=== PATIENT | female | born 1995 | race Caucasian/White ===

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

== ENCOUNTER → 2017-04-12 | Outpatient (CLI) | payer OTHER | LOC: M ADAMS 17:40 | DX: S60.222A Contusion of left hand, initial encounter (principal); X58.XXXA Exposure to other specified factors, initial encounter; Y92.9 Unspecified place or not applicable ==

== ENCOUNTER 2017-06-04 17:57 | Emergency (ER) | payer OTHER ==
[2017-06-04 21:23] LABS: KETONE, URINE AUTO RFX NEGATIVE (NEGATIVE); LEUKOCYTE ESTERASE UR AUTO RFX NEGATIVE (NEGATIVE); MUCUS, URINE RFX SMALL (NEGATIVE); NITRITE, URINE AUTO RFX NEGATIVE (NEGATIVE); RBC, URINE AUTO RFX 3 /HPF (0-3); SQUAM EPITHELIAL CELL UR AURFX 1 /HPF (0-6); WBC, URINE AUTO RFX 2 /HPF (0-3)
[2017-06-04] MEDS: NS 1,000 ML IV ×2 (21:30)
[2017-06-04] MEDS: MORPHINE 2 MG/ML 1ML SYRINGE (J2270) IV ×2 (21:30)
[2017-06-04] MEDS: ONDANSETRON 4MG/2ML VIAL (J2405) IV ×2 (21:30)
[2017-06-04] MEDS: GASTROGRAFIN SOLUTION 30ML PO ×4 (21:30→22:00)
[2017-06-04] MEDS: ACETAMINOPHEN 325 MG TAB PO ×2 (22:00)
[2017-06-04 22:01] LABS: BASO % 0.4 % (0.0-1.0); EOS # 0.1 10^3/uL (0.0-0.50); EOS % 1.5 % (0.0-3.0); HEMATOCRIT 48.7 % (36.0-47.0); HEMOGLOBIN 16.2 g/dl (12.0-15.5); IMMATURE GRANULOCYTE % 0.2 % (0-3.0); LYMPH # 3.1 10^3/uL (1.5-6.5); LYMPH % 34.6 % (24.0-44.0); MEAN CORPUSCULAR HEMOGLOBIN 29.2 pg (27.0-33.0); MEAN CORPUSCULAR HGB CONC 33.3 g/dl (32.0-36.5); MEAN CORPUSCULAR VOLUME 87.9 fl (80.0-96.0); MONO # 0.7 10^3/uL (0.0-0.8); MONO % 7.5 % (0.0-5.0); NEUTROPHILS % 55.8 % (36.0-66.0); PLATELET COUNT, AUTOMATED 275 10^3/uL (150-450); RED BLOOD COUNT 5.54 10^6/uL (4.00-5.40); RED CELL DISTRIBUTION WIDTH 12.4 % (11.5-14.5); WHITE BLOOD COUNT 8.9 10^3/uL (4.0-10.0)
[2017-06-04 22:12] LABS: INR 0.98
[2017-06-04 22:19] LABS: ALBUMIN 4.5 GM/DL (3.2-5.2); ALBUMIN/GLOBULIN RATIO 1.32 (1.00-1.93); ALKALINE PHOSPHATASE 92 U/L (45-117); ALT/SGPT 23 U/L (12-78); ANION GAP 5 MEQ/L (8-16); AST/SGOT 18 U/L (7-37); BILIRUBIN,DIRECT 0.1 MG/DL (0.0-0.2); BILIRUBIN,TOTAL 0.4 MG/DL (0.2-1.0); BLOOD UREA NITROGEN 10 MG/DL (7-18); CALCIUM LEVEL 9.5 MG/DL (8.5-10.1); CARBON DIOXIDE LEVEL 27 MEQ/L (21-32); CHLORIDE LEVEL 107 MEQ/L (98-107); CREATININE FOR GFR 0.74 MG/DL (0.55-1.30); GLUCOSE, FASTING 76 MG/DL (70-100); LIPASE 82 U/L (73-393); POTASSIUM SERUM 4.3 MEQ/L (3.5-5.1); SODIUM LEVEL 139 MEQ/L (136-145); TOTAL PROTEIN 7.9 GM/DL (6.4-8.2)
[2017-06-04] MEDS ORDERED: ISOVUE-370 76% 100ML VIAL (Q9967) As Ordered ×2 (22:42)
== END 2017-06-04 23:54 | disposition home or self-care (01) ==
LOC: M ED 17:57
DX: K92.1 Melena (principal); K62.89 Other specified diseases of anus and rectum; J45.909 Unspecified asthma, uncomplicated; Z88.0 Allergy status to penicillin; Z88.8 Allergy status to other drugs, medicaments and biological substances; Z79.899 Other long term (current) drug therapy
CPT/HCPCS: Q9963

== ENCOUNTER → 2017-10-01 | Outpatient (REF) | payer OTHER ==
[2017-10-01 20:06] LABS: BASO % 0.3 % (0.0-1.0); EOS # 0.1 10^3/uL (0.0-0.50); HEMATOCRIT 47.4 % (36.0-47.0); HEMOGLOBIN 15.1 g/dl (12.0-15.5); IMMATURE GRANULOCYTE % 0.5 % (0-3.0); LYMPH % 22.4 % (24.0-44.0); MEAN CORPUSCULAR HEMOGLOBIN 29.3 pg (27.0-33.0); MEAN CORPUSCULAR HGB CONC 31.9 g/dl (32.0-36.5); MONO # 0.8 10^3/uL (0.0-0.8); MONO % 8.8 % (0.0-5.0); NEUTROPHILS # 5.9 10^3/uL (1.8-7.7); PLATELET COUNT, AUTOMATED 313 10^3/uL (150-450); RED BLOOD COUNT 5.15 10^6/uL (4.00-5.40); RED CELL DISTRIBUTION WIDTH 13.1 % (11.5-14.5); WHITE BLOOD COUNT 8.8 10^3/uL (4.0-10.0)
[2017-10-01 20:27] LABS: ALBUMIN/GLOBULIN RATIO 1.14 (1.00-1.93); ALKALINE PHOSPHATASE 84 U/L (45-117); ALT/SGPT 24 U/L (12-78); AMYLASE 70 U/L (25-115); ANION GAP 9 MEQ/L (8-16); AST/SGOT 14 U/L (7-37); BILIRUBIN,TOTAL 0.4 MG/DL (0.2-1.0); BLOOD UREA NITROGEN 11 MG/DL (7-18); CALCIUM LEVEL 9.4 MG/DL (8.5-10.1); CARBON DIOXIDE LEVEL 28 MEQ/L (21-32); CHLORIDE LEVEL 106 MEQ/L (98-107); CREATININE FOR GFR 0.85 MG/DL (0.55-1.30); FREE T4 1.15 NG/DL (0.78-1.33); GLUCOSE, FASTING 83 MG/DL (70-100); LIPASE 73 U/L (73-393); POTASSIUM SERUM 4.5 MEQ/L (3.5-5.1); SODIUM LEVEL 143 MEQ/L (136-145); TOTAL PROTEIN 7.5 GM/DL (6.4-8.2)
== END ==
LOC: M LAB REF 19:34
DX: R10.9 Unspecified abdominal pain (principal); R63.5 Abnormal weight gain
CPT/HCPCS: 82150

== ENCOUNTER → 2017-10-01 | Outpatient (CLI) | payer OTHER, SELFPAY | LOC: M RAD 14:47 | DX: N83.201 Unspecified ovarian cyst, right side (principal); R63.5 Abnormal weight gain; R10.9 Unspecified abdominal pain | CPT/HCPCS: 76856 ==

== ENCOUNTER → 2017-10-01 | Outpatient (REF) | payer OTHER, SELFPAY | LOC: M LAB REF 19:40 | DX: R10.9 Unspecified abdominal pain (principal) | CPT/HCPCS: 87086 ==

== ENCOUNTER 2018-04-12 16:06 | Emergency (ER) | payer OTHER ==
[~2018-04-12] VITALS: Ht 154.9 cm; Wt 62.7 kg
[~2018-04-12 16:06] MED LIST: ALBU17IN2 INH; COLA100C5 PO; TYLE500T78 PO
[2018-04-12] MEDS ORDERED: ONDANSETRON 4 MG ORAL DISINTEGRATING TAB (Q0162 PER 1MG) PO ONE (16:45)
[2018-04-12] MEDS ORDERED: IPRATROPIUM 0.5MG/ALBUTEROL 2.5MG INH SOL UD 3ML (DUONEB)(J7620) NEB ONE (16:45)
[2018-04-12] MEDS ORDERED: predniSONE 20 MG TAB PO ONE (17:30)
[2018-04-12] MEDS ORDERED: ALBUTEROL SULFATE 2.5 MG/0.5 ML INH NEB SOLN INH ONE (17:30)
[2018-04-12] MEDS ORDERED: BENZ200C70 PO (18:16)
[2018-04-12] MEDS ORDERED: ONDA4TAB6 PO (18:16)
[2018-04-12] MEDS ORDERED: PRED20TA PO (18:16)
[2018-04-12] MEDS ORDERED: MAG SULF 1GM/100ML (MAG RUN) 1 GM in APPROPRIATE DILUENT 1 EA IV ONE (19:30)
[2018-04-12] MEDS ORDERED: NS 1,000 ML IV ONE (19:30)
[2018-04-12 19:43] LABS: BASO % 0.3 % (0.0-1.0); HEMATOCRIT 44.2 % (36.0-47.0); HEMOGLOBIN 14.8 g/dl (12.0-15.5); LYMPH # 0.5 10^3/uL (1.5-6.5); LYMPH % 12.9 % (24.0-44.0); MEAN CORPUSCULAR HEMOGLOBIN 29.2 pg (27.0-33.0); MEAN CORPUSCULAR HGB CONC 33.5 g/dl (32.0-36.5); MEAN CORPUSCULAR VOLUME 87.4 fl (80.0-96.0); MONO # 0.2 10^3/uL (0.0-0.8); MONO % 3.9 % (0.0-5.0); NEUTROPHILS # 3.1 10^3/uL (1.8-7.7); NEUTROPHILS % 82.4 % (36.0-66.0); PLATELET COUNT, AUTOMATED 160 10^3/uL (150-450); RED BLOOD COUNT 5.06 10^6/uL (4.00-5.40); WHITE BLOOD COUNT 3.8 10^3/uL (4.0-10.0)
[2018-04-12 20:12] LABS: BLOOD UREA NITROGEN 10 MG/DL (7-18); CALCIUM LEVEL 8.4 MG/DL (8.5-10.1); CARBON DIOXIDE LEVEL 23 MEQ/L (21-32); CHLORIDE LEVEL 104 MEQ/L (98-107); CREATININE FOR GFR 1.05 MG/DL (0.55-1.30); GLOMERULAR FILTRATION RATE > 60.0 (>60); GLUCOSE, FASTING 210 MG/DL (70-100); POTASSIUM SERUM 2.7 MEQ/L (3.5-5.1); SODIUM LEVEL 139 MEQ/L (136-145)
[2018-04-12] MEDS ORDERED: KCL 20MEQ IN 100ML SWI (KRUN) 20 MEQ in APPROPRIATE DILUENT 1 EA IV ONE ×2 (20:15)
[2018-04-12] MEDS ORDERED: POTASSIUM CHLORIDE 10 MEQ SR TABLET PO ONE (20:15)
[2018-04-12 20:23] LABS: ABG BASE EXCESS -1.6 (-2.0-2.0); ABG O2 SATURATION 98.7 % (95.0-99.0); ABG PARTIAL PRESSURE CO2 30.1 mmHg (35.0-45.0); ABG STANDARD HCO3 23.2 MEQ/L (22.0-26.0); ABG TOTAL CO2 21.9 MEQ/L (22.0-29.0); ABG pH (ARTERIAL) 7.461 UNITS (7.350-7.450)
[2018-04-12 20:30] LABS: MAGNESIUM LEVEL 2.2 MG/DL (1.8-2.4)
[2018-04-12] MEDS ORDERED: KCL 10MEQ/100ML SWI (KRUN) 10 MEQ in APPROPRIATE DILUENT 1 EA IV ONE (20:30)
--- NOTE | 2018-04-12 20:39 | REP ---
Clinical: Wheezing and shortness of breath . Technique: PA and lateral. Comparison: None . Findings: The mediastinum and cardiac silhouette are normal. Increased left perihilar markings without focal consolidation suggest bronchitis . No effusion, or pneumothorax. Skeletal structures are intact and normal for age. Impression: Possible bronchitis. No focal consolidation. Electronically Signed by Calos Villagomez MD 04/12/2018 08:30 P
[2018-04-12 20:45] LABS: HEMOGLOBIN A1c 5.1 %
[2018-04-12 21:51] LABS: APPEARANCE, URINE CLEAR (CLEAR); BACTERIA, URINE AUTO 1+ (NEGATIVE); BILIRUBIN, URINE AUTO NEGATIVE (NEGATIVE); BLOOD, URINE BLOOD 1+ (NEGATIVE); COLOR, URINE COLORLESS (YELLOW); GLUCOSE, URINE (UA) AUTO NEGATIVE (NEGATIVE); KETONE, URINE AUTO NEGATIVE (NEGATIVE); LEUKOCYTE ESTERASE, URINE AUTO NEGATIVE (NEGATIVE); NITRITE, URINE AUTO NEGATIVE (NEGATIVE); PROTEIN, URINE AUTO NEGATIVE (NEGATIVE); RBC, URINE AUTO 1 /HPF (0-3); SPECIFIC GRAVITY URINE AUTO 1.001 (1.002-1.035); SQUAMOUS EPITHELIAL CELL UR AU 0 /HPF (0-6); UROBILINOGEN, URINE AUTO 0.2 mg/dL (0.0-2.0); WBC, URINE AUTO 0 /HPF (0-3)
[2018-04-12] MEDS ORDERED: K-TA1TAB PO (22:06)
[2018-04-12 22:12] VITALS: BP 101/58
--- NOTE | 2018-04-13 20:03 | ECGEPIP ---
Stationary ECG Study [facility] - ED Test Date: 2018-04-12 Pat Name: NAYLA SWEENEY Department: Room: - Gender: F [employer]: af : 1995 Requested By: NALDO IGLESIAS PA-C. Order Number: [id number] Reading MD: Edilma Barnes Measurements Intervals [place] Rate: 84 P: 71 SC: 157 QRS: 57 QRSD: 78 T: 25 QT: 363 QTc: 432 Interpretive Statements SINUS RHYTHM WITH SINUS ARRHYTHMIA NONSPECIFIC ST & T-WAVE ABNORMALITY NO PRIOR FOR COMPARISON Electronically Signed On 04-13-2018 20:03:27 EST by Edilma Barnes
== END 2018-04-12 22:22 | disposition home or self-care (01) ==
LOC: M ED 16:06
DX: J45.901 Unspecified asthma with (acute) exacerbation (principal); R11.2 Nausea with vomiting, unspecified; T50.905A Adverse effect of unspecified drugs, medicaments and biological substances, initial encounter; E87.6 Hypokalemia; F17.200 Nicotine dependence, unspecified, uncomplicated; Z88.0 Allergy status to penicillin
CPT/HCPCS: 36600; 71046; 80048; 81001; 82803; 83036; 83735; 85025; 93005; 94640; 96365; 99284; J3475; Q0162

== ENCOUNTER → 2018-07-28 | Outpatient (REF) | payer OTHER ==
[~2018-07-28] MED LIST changes: +BENZ200C70 PO; +K-TA1TAB PO; +ONDA4TAB6 PO; +PRED20TA PO
[2018-07-28 16:16] LABS: URINE PREG TEST NEGATIVE (NEGATIVE)
== END ==
LOC: M LABDRAW1 15:37
PROVIDERS: ATTEND Physician Assistant
DX: Z32.00 Encounter for pregnancy test, result unknown (principal)

== ENCOUNTER → 2018-08-06 | Outpatient (CLI) | payer OTHER ==
--- NOTE | 2018-08-06 12:08 | REP ---
Clinical: Chronic shortness of breath and wheezing. Technique: Axial noncontrast images from the lung bases to the pubic symphysis with coronal and sagittal re-formations. Findings: Bilateral lung walters are well-aerated, symmetric and clear. No focal consolidation. No effusion. No pneumothorax. No obvious interstitial disease. Tracheobronchial tree is patent and normal. No significant bronchiectasis. No axillary, hilar, or mediastinal adenopathy. Mediastinum demonstrates normal thoracic aorta, pulmonary vasculature and heart/pericardium. Limited upper abdomen demonstrates normal bilateral adrenal glands. Surrounding musculoskeletal structures are intact. Impression: Normal noncontrast chest CT. Electronically Signed by Calos Villagomez MD 08/06/2018 11:59 A
== END ==
LOC: M RAD 11:08
PROVIDERS: ATTEND Physician Assistant
DX: R91.8 Other nonspecific abnormal finding of lung field (principal)

== ENCOUNTER → 2018-08-19 | Outpatient (CLI) | payer OTHER ==
[~2018-08-19] MED LIST changes: +METHACHOLINE KIT (J7674) INH ONE
--- NOTE | 2018-08-19 14:56 | PFTRPT ---
Height: 60.00 Inches Weight: 132.00 Lbs BSA: 1.56 Diagnosis: R06.00 DATE OF PROCEDURE: 08/19/2018 ORDERED BY: BRENDA Kahn INTERPRETATION: Study of excellent technical quality. Under protocol, methacholine was administered. At a dose of 2.5 mg or 13.875 CDUs, a 30% decline in the FEV1 was noted. PC of 0.78 is significant. Flow rates did return to baseline post bronchodilator administration. IMPRESSION: Positive methacholine challenge study. MTDD
== END ==
LOC: M CARPUL 13:24
PROVIDERS: ATTEND Physician Assistant
DX: R06.00 Dyspnea, unspecified (principal)
CPT/HCPCS: 94070; J7674

== ENCOUNTER → 2019-04-24 | Outpatient (REF) | payer OTHER ==
[~2019-04-24] MED LIST changes: -METHACHOLINE KIT (J7674) INH ONE
== END ==
LOC: M LAB REF 12:34
PROVIDERS: ATTEND Physician Assistant
DX: R50.9 Fever, unspecified (principal)

== ENCOUNTER → 2019-06-08 | Outpatient (CLI) | payer OTHER ==
--- NOTE | 2019-06-08 17:52 | REP ---
REASON FOR EXAM: History of intermittent asthma. Latest prior for comparison is 08/06/2018. The lack of intravenous contrast decreases the sensitivity of the exam. Once again, there is soft tissue in the anterior mediastinum splaying the anterior junction line. This is completely stable. There is no mediastinal or hilar adenopathy. There are no pleural or pericardial effusions. The imaged upper abdomen and imaged osseous structures are unchanged and again seen to be within normal limits. Evaluation of the lung walters shows completely stable biapical posterior pleural-based nodular densities. No new abnormal nodules, masses, or opacities have developed. IMPRESSION: Stable anterior mediastinal soft tissue density, likely residual thymic tissue, 10 months' stability is reassuring. No evidence of acute disease. Electronically Signed by Teddy Soto DO 06/08/2019 06:33 P
== END ==
LOC: M RAD 12:58
PROVIDERS: ATTEND Physician Assistant
DX: J45.909 Unspecified asthma, uncomplicated (principal)